=== PATIENT | female | born 1955 | race African-American/Black ===

== ENCOUNTER 2018-08-19 16:32 | Emergency (ER) | payer MEDICAID ==
[~2018-08-19] VITALS: Ht 149.9 cm; Wt 55.0 kg
[2018-08-19 17:01] VITALS: BP 192/90
== END 2018-08-19 20:24 | disposition left against medical advice (07) ==
LOC: ER 16:32
DX: R51 Headache (principal); Z53.21 Procedure and treatment not carried out due to patient leaving prior to being seen by health care provider

== ENCOUNTER 2020-12-07 23:14 | Inpatient (IN) | payer MEDICAID, OTHER ==
[~2020-12-07] VITALS: Ht 162.6 cm; Wt 40.9 kg
[2020-12-07] MEDS ORDERED: SODIUM CHLORIDE 0.9% 1,000 ML IV ONE (23:30)
[2020-12-08 00:02] LABS: EOSINOPHILS % 0.6 % (0.0-5.0); HEMATOCRIT. 49.1 % (36.0-48.0); HEMOGLOBIN. 16.6 g/dL (12.0-16.0); LYMPHOCYTES % 37.1 % (20.0-50.0); MEAN CORPUSCULAR HEMOGLOBIN 27.7 pg (28.0-32.0); MEAN CORPUSCULAR VOLUME 82.3 fL (81.0-99.0); MEAN PLATELET VOLUME 8.8 fl (7.4-10.4); MONOCYTES % 10.7 % (2.0-8.0); NEUTROPHILS % 50.6 % (40.0-76.0); PLATELET 194 x1000/uL (130-400); RED BLOOD CELL COUNT 5.97 mill/uL (4.2-5.4); RED CELL DISTRIBUTION WIDTH 13.6 % (11.6-14.6)
[2020-12-08 00:04] LABS: CHLORIDE 104 mEq/L (98-107)
[2020-12-08 00:08] LABS: ETHANOL BLOOD < 10 mg/dL
[2020-12-08 04:45] LABS: CLARITY URINE CLEAR (CLEAR); COLOR URINE YELLOW (YELLOW); KETONES URINE NEGATIVE (NEGATIVE); LEUKOCYTE ESTERASE URINE 2+ (NEGATIVE); NITRITE URINE NEGATIVE (NEGATIVE); OCCULT BLOOD URINE NEGATIVE (NEGATIVE); PH URINE 7.5 (4.5-8.0); PROTEIN URINE 1+ (NEGATIVE); SPECIFIC GRAVITY URINE 1.006 (1.005-1.030)
[2020-12-08 04:56] LABS: *AMPHETAMINES SCREEN URINE NEGATIVE (NEGATIVE); *BARBITURATES SCREEN URINE NEGATIVE (NEGATIVE)
[2020-12-08 04:57] LABS: *BENZODIAZEPINES SCREEN URINE NEGATIVE (NEGATIVE); *COCAINE SCREEN URINE PRESUMTIVE POSITIVE (NEGATIVE); CANNABINOID URINE SCREEN PRESUMTIVE POSITIVE (NEGATIVE); METHADONE URINE SCREEN NEGATIVE (NEGATIVE); OPIATES URINE SCREEN NEGATIVE (NEGATIVE); PHENCYCLIDINE URINE SCREEN PRESUMTIVE POSITIVE (NEGATIVE)
[2020-12-08 09:50] VITALS: BP 131/64
[2020-12-08] MEDS ORDERED: SODIUM CHLORIDE 0.9% 1,000 ML IV SCH (10:45)
[2020-12-08] MEDS ORDERED: ONDANSETRON HCL 4MG/2ML INJ IV PRN (10:45)
[2020-12-08 11:00] VITALS: BP 131/64
[2020-12-08 12:00] VITALS: BP 133/63
[2020-12-08 16:00] VITALS: BP 109/84
[2020-12-08 17:04] LABS: BASOPHILS % 1.1 % (0.0-2.0); HEMATOCRIT. 46.9 % (36.0-48.0); LYMPHOCYTES % 41.2 % (20.0-50.0); MEAN CORPUSCULAR HEMOGLOBIN 28.2 pg (28.0-32.0); MEAN CORPUSCULAR VOLUME 82.8 fL (81.0-99.0); MEAN PLATELET VOLUME 9.3 fl (7.4-10.4); MONOCYTES % 13.9 % (2.0-8.0); NEUTROPHILS % 41.8 % (40.0-76.0); PLATELET 183 x1000/uL (130-400); RED BLOOD CELL COUNT 5.67 mill/uL (4.2-5.4); RED CELL DISTRIBUTION WIDTH 13.5 % (11.6-14.6)
[2020-12-08 17:24] LABS: CHLORIDE 107 mEq/L (98-107)
[2020-12-08 20:00] VITALS: BP 133/78
[2020-12-09] VITALS: BP 122/59
[2020-12-09 00:27] LABS: T4 FREE 1.04 ng/dL (0.76-1.46)
[2020-12-09 01:04] LABS: FOLIC ACID (FOLATE) SERUM 7.6 ng/mL (>5.38)
[2020-12-09 04:00] VITALS: BP 172/84
[2020-12-09 08:20] VITALS: BP 142/75
[2020-12-09 12:00] VITALS: BP 135/75
[2020-12-09 16:00] VITALS: BP 157/84
[2020-12-09] MEDS ORDERED: AMLODIPINE 10MG TABLET PO SCH (17:30)
[2020-12-09 19:43] VITALS: BP 157/87
== END 2020-12-09 20:21 | disposition home or self-care (01) | DRG 52 ==
LOC: ER 23:14 → 5WST 12-08 06:06 → ENRESERV 12-08 08:19
PROVIDERS: ADMIT Internal Medicine; ATTEND Internal Medicine
DX: G92 Toxic encephalopathy (principal); F12.10 Cannabis abuse, uncomplicated; F14.10 Cocaine abuse, uncomplicated; I10 Essential (primary) hypertension; Z86.73 Personal history of transient ischemic attack (TIA), and cerebral infarction without residual deficits; Z82.49 Family history of ischemic heart disease and other diseases of the circulatory system; Z79.899 Other long term (current) drug therapy; Z71.51 Drug abuse counseling and surveillance of drug abuser; F16.10 Hallucinogen abuse, uncomplicated; R91.8 Other nonspecific abnormal finding of lung field; F17.200 Nicotine dependence, unspecified, uncomplicated
CPT/HCPCS: 36415; 70551; 71045; 71250; 80048; 80053; 80305; 80307; 80320; 80329; 81003; 82140; 82607; 82746; 82962; 83036; 83605; 83880; 84145; 84439; 84443; 84481; 84484; 85025; 93005; 99285; J7030; G0480

== ENCOUNTER 2021-07-14 19:38 | Inpatient (IN) | payer MEDICARE, MEDICAID ==
[~2021-07-14] VITALS: Ht 149.9 cm; Wt 59.0 kg
[2021-07-14] MEDS ORDERED: SODIUM CHLORIDE 0.9% 1,000 ML IV ONE (20:45)
[2021-07-14 22:22] LABS: BASOPHILS % 0.8 % (0.0-2.0); EOSINOPHILS % 0.8 % (0.0-5.0); HEMATOCRIT. 43.3 % (36.0-48.0); HEMOGLOBIN. 14.2 g/dL (12.0-16.0); LYMPHOCYTES % 20.7 % (20.0-50.0); MEAN CORPUSCULAR HEMOGLOBIN 26.6 pg (28.0-32.0); MEAN CORPUSCULAR VOLUME 81.4 fL (81.0-99.0); MEAN PLATELET VOLUME 8.9 fl (7.4-10.4); NEUTROPHILS % 69.7 % (40.0-76.0); PLATELET 194 x1000/uL (130-400); RED BLOOD CELL COUNT 5.32 mill/uL (4.2-5.4); RED CELL DISTRIBUTION WIDTH 13.8 % (11.6-14.6)
[2021-07-14 22:24] LABS: CHLORIDE 109 mEq/L (98-107)
[2021-07-14 22:28] LABS: ETHANOL BLOOD < 10 mg/dL
[2021-07-14 22:34] LABS: CLARITY URINE CLOUDY (CLEAR); COLOR URINE YELLOW (YELLOW); KETONES URINE NEGATIVE (NEGATIVE); LEUKOCYTE ESTERASE URINE 3+ (NEGATIVE); NITRITE URINE NEGATIVE (NEGATIVE); OCCULT BLOOD URINE TRACE (NEGATIVE); PH URINE 6.5 (4.5-8.0); PROTEIN URINE TRACE (NEGATIVE); SPECIFIC GRAVITY URINE 1.009 (1.005-1.030)
[2021-07-14 22:49] LABS: *AMPHETAMINES SCREEN URINE NEGATIVE (NEGATIVE); *BARBITURATES SCREEN URINE NEGATIVE (NEGATIVE); *BENZODIAZEPINES SCREEN URINE NEGATIVE (NEGATIVE); *COCAINE SCREEN URINE PRESUMTIVE POSITIVE (NEGATIVE); CANNABINOID URINE SCREEN PRESUMTIVE POSITIVE (NEGATIVE); METHADONE URINE SCREEN NEGATIVE (NEGATIVE); OPIATES URINE SCREEN NEGATIVE (NEGATIVE); PHENCYCLIDINE URINE SCREEN NEGATIVE (NEGATIVE)
[2021-07-14] MEDS ORDERED: CEFTRIAXONE 1 G PREMIX 50 ML IV ONE (23:15)
[2021-07-15] MEDS ORDERED: METRONIDAZOLE 500MG TABLET PO NR (02:45)
[2021-07-15] MEDS ORDERED: ACETAMINOPHEN 325MG TABLET PO PRN (07:00)
[2021-07-15 08:00] VITALS: BP 114/66
[2021-07-15] MEDS ORDERED: CEFTRIAXONE 1 G PREMIX 50 ML IV SCH (09:00)
[2021-07-15 09:35] VITALS: BP 114/66
[2021-07-15 12:00] VITALS: BP 123/65
[2021-07-15] MEDS: CEFTRIAXONE 1,000 MG in DEXTROSE 5% WATER 50 ML IV SCH (14:18)
[2021-07-15 16:00] VITALS: BP 128/67
[2021-07-15] MEDS: ATORVASTATIN CALCIUM 20MG TABLET PO SCH (20:31)
[2021-07-15 21:57] VITALS: BP 126/74
[2021-07-16] VITALS: BP 148/85
[2021-07-16 04:00] VITALS: BP_SYST 147; BP_SYST 154; BP_DIAS 69; BP_DIAS 87
[2021-07-16 06:50] LABS: EOSINOPHILS % 3.7 % (0.0-5.0); HEMATOCRIT. 45.3 % (36.0-48.0); HEMOGLOBIN. 14.8 g/dL (12.0-16.0); LYMPHOCYTES % 39.9 % (20.0-50.0); MEAN CORPUSCULAR HEMOGLOBIN 26.9 pg (28.0-32.0); MEAN CORPUSCULAR VOLUME 82.1 fL (81.0-99.0); MEAN PLATELET VOLUME 9.2 fl (7.4-10.4); MONOCYTES % 11.9 % (2.0-8.0); NEUTROPHILS % 43.5 % (40.0-76.0); PLATELET 220 x1000/uL (130-400); RED BLOOD CELL COUNT 5.51 mill/uL (4.2-5.4)
[2021-07-16 07:01] LABS: CHLORIDE 105 mEq/L (98-107)
[2021-07-16 08:00] VITALS: BP 147/84
[2021-07-16] MEDS: ASPIRIN 81MG TABLET PO SCH (09:04)
[2021-07-16 12:00] VITALS: BP_SYST 128; BP_SYST 132; BP_DIAS 72; BP_DIAS 73
[2021-07-16 12:08] LABS: VITAMIN B12 SERUM 375 pg/mL (211-911)
[2021-07-16] MEDS: CEFTRIAXONE 1,000 MG in DEXTROSE 5% WATER 50 ML IV SCH (15:53)
[2021-07-16 16:00] VITALS: BP 124/71
[2021-07-16 20:00] VITALS: BP 151/67
[2021-07-16] MEDS: ATORVASTATIN CALCIUM 20MG TABLET PO SCH (20:41)
[2021-07-17] VITALS: BP 131/81
[2021-07-17 04:00] VITALS: BP 159/87
[2021-07-17 08:00] VITALS: BP_SYST 145; BP_SYST 148; BP_DIAS 73; BP_DIAS 85
[2021-07-17] MEDS: ASPIRIN 81MG TABLET PO SCH (09:08)
[2021-07-17 12:00] VITALS: BP 117/72
[2021-07-17] MEDS ORDERED: AMLODIPINE 5MG TABLET PO SCH (13:45)
[2021-07-17] MEDS ORDERED: ENOXAPARIN 40MG/0.4ML SYR SUBCUT SCH (14:00)
[2021-07-17] MEDS: CEFTRIAXONE 1,000 MG in DEXTROSE 5% WATER 50 ML IV SCH (14:15)
[2021-07-17 16:00] VITALS: BP 145/73
== END 2021-07-17 17:07 | disposition left against medical advice (07) | DRG 918 ==
LOC: ER 19:38 → 6WST 07-15 02:20 → ENRESERV 07-15 04:09
PROVIDERS: ADMIT Internal Medicine; ATTEND Internal Medicine
DX: T40.5X1A Poisoning by cocaine, accidental (unintentional), initial encounter (principal); E87.2 Acidosis; N39.0 Urinary tract infection, site not specified; A59.9 Trichomoniasis, unspecified; F14.90 Cocaine use, unspecified, uncomplicated; I10 Essential (primary) hypertension; R47.1 Dysarthria and anarthria; F17.210 Nicotine dependence, cigarettes, uncomplicated; J44.9 Chronic obstructive pulmonary disease, unspecified; R91.8 Other nonspecific abnormal finding of lung field; Z53.29 Procedure and treatment not carried out because of patient's decision for other reasons; R13.10 Dysphagia, unspecified; Z82.0 Family history of epilepsy and other diseases of the nervous system; Z86.73 Personal history of transient ischemic attack (TIA), and cerebral infarction without residual deficits; R42 Dizziness and giddiness
CPT/HCPCS: 36415; 70551; 71045; 80048; 80053; 80305; 80307; 80320; 80329; 81003; 82607; 83605; 83880; 84443; 84484; 85025; 93005; 93306; 99285; J0696; J1650; J7030; J7060; G0480